=== PATIENT | male | born 1995 | race Caucasian/White ===

== ENCOUNTER 2021-02-14 22:51 | Emergency (ER) | payer OTHER ==
[~2021-02-14] VITALS: Ht 182.9 cm; Wt 104.3 kg
[2021-02-14] MEDS ORDERED: TOPROL XL25 MG PO (23:00)
[2021-02-14 23:25] LABS: ABSOLUTE BASOPHILS 0.1 thou/uL (0.0-0.2); ABSOLUTE LYMPHOCYTES 3.5 thou/uL (0.8-5.3); ABSOLUTE MONOCYTES 1.1 thou/uL (0.0-1.2); ABSOLUTE NEUTROPHILS 11.2 thou/uL (1.6-8.1); BASOPHILS 0.5 %; EOSINOPHILS 0.1 %; HEMATOCRIT 53.1 % (42.0-52.0); HEMOGLOBIN 17.9 gm/dL (14.0-18.0); LYMPHOCYTES 21.8 %; MCH 31.4 pg (26.0-34.0); MCHC 33.7 g/dL (28.0-37.0); MCV 93.1 fL (80.0-100.0); MONOCYTES 6.8 %; NUCLEATED RBCS 0 /100WBC; PLATELET COUNT* 384 thou/uL (150-400); POLYS 70.8 %; RDW-CV 14.3 % (10.5-14.5); WBC 15.8 thou/uL (4.0-11.0)
[2021-02-14 23:49] LABS: ANION GAP 19 mmol/L (7-16); BUN 12 mg/dL (7-18); CALCIUM 8.7 mg/dL (8.5-10.1); CHLORIDE 97 mmol/L (98-107); CO2 22 mmol/L (21-32); CREATININE 1.2 mg/dL (0.6-1.3); GLUCOSE 87 mg/dL (70-99); POTASSIUM 3.6 mmol/L (3.5-5.1); SODIUM 138 mmol/L (136-145)
[2021-02-15] LABS: ALBUMIN 4.6 g/dL (3.4-5.0); ALKALINE PHOSPHATASE 80 U/L (46-116); LIPASE 62 U/L (73-393); NT-PRO BRAIN NAT PEPTIDE < 5 pg/mL (<300); SGOT 26 U/L (15-37); SGPT 38 U/L (30-65); TOTAL BILIRUBIN 0.4 mg/dL (<0.1-1.0); TOTAL PROTEIN 8.6 g/dL (6.4-8.2)
[2021-02-15 00:37] LABS: APTT 28.2 Seconds (25.0-31.3); INR 1.1; PROTIME 11.4 Seconds (9.20-11.50)
[2021-02-15] MEDS ORDERED: ZOFRAN ODT4 MG PO (05:55)
--- NOTE | 2021-02-15 09:57 | EKG ---
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
== END 2021-02-15 00:25 | disposition left against medical advice (07) ==
LOC: M.ERS 22:51
PROVIDERS: Personal Emergency Response Attendant
DX: F10.129 Alcohol abuse with intoxication, unspecified (principal); Y90.9 Presence of alcohol in blood, level not specified; R07.89 Other chest pain; I10 Essential (primary) hypertension; Z79.899 Other long term (current) drug therapy

== ENCOUNTER 2021-02-15 00:46 | Emergency (ER) | payer OTHER ==
[~2021-02-15] VITALS: Ht 182.9 cm; Wt 99.8 kg
[~2021-02-15 00:46] MED LIST: TOPROL XL25 MG PO
[2021-02-15 04:01] LABS: URINE BILIRUBIN NEGATIVE (Negative); URINE BLOOD 1+ (Negative); URINE CLARITY CLEAR; URINE COLOR YELLOW; URINE GLUCOSE-RANDOM NEGATIVE (Negative); URINE KETONES 2+ (Negative); URINE LEUKOCYTES-REFLEX NEGATIVE (Negative); URINE NITRITE-REFLEX NEGATIVE (Negative); URINE PROTEIN 3+ (Negative); URINE SPECIFIC GRAVITY >= 1.030 (1.005-1.030); URINE UROBILINOGEN 0.2 E.U./dl (0.2-1.0)
[2021-02-15 04:09] LABS: AMP/METHAMP Negative (Negative); BARBITURATES Negative (Negative); BENZODIAZEPINES Negative (Negative); COCAINE Negative (Negative); METHADONE Negative (Negative); OPIATES Negative (Negative); PCP Negative (Negative); THC POSITIVE (Negative)
[2021-02-15 04:19] LABS: CRYSTALS None Seen /LPF (None Seen); FINE GRANULAR CASTS 0-3 Few /LPF (None Seen); HYALINE CASTS 0-3 Few /LPF (None Seen); MUCUS 4-6 Moderate strn/LPF (None Seen); SQUAMOUS 0-3 Few /LPF (0-3); URINE RBC 3-10 Few /HPF (0-2); URINE WBC-REFLEX 0-5 Rare /HPF (0-5)
[2021-02-15] MEDS ORDERED: ZOFRAN ODT4 MG PO (05:55)
[2021-02-15 07:02] VITALS: BP 134/88
--- NOTE | 2021-02-15 09:59 | EKG ---
[place] [address] ELECTROCARDIOGRAM REPORT Name: ALFONSO ATKINSON Room: 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1995 Requested By: Sofia Zuluaga Order Number: [id number] MD: David White Measurements Intervals [place] Rate: 112 P: 44 [place]: 160 QRS: 48 QRSD: 118 T: 17 QT: 355 QTc: 485 Interpretive Statements Sinus tachycardia Probable left atrial enlargement Incomplete right bundle branch block Baseline wander in lead(s) V2 Compared to ECG 02/14/2021 23:00:34 no change Electronically Signed On 02-15-2021 9:59:11 CDT by David White [email or web address] <ELECTRONICALLY SIGNED> By: David White MD, FAC 02/15/21 0959 2 2 David White MD, [facility] /EPI
== END 2021-02-15 07:02 | disposition home or self-care (01) ==
LOC: M.ERS 00:46
PROVIDERS: Personal Emergency Response Attendant
DX: F10.129 Alcohol abuse with intoxication, unspecified (principal); R11.2 Nausea with vomiting, unspecified; I10 Essential (primary) hypertension; Y90.9 Presence of alcohol in blood, level not specified; Z79.899 Other long term (current) drug therapy

== ENCOUNTER 2021-02-22 13:04 | Inpatient (IN) | payer OTHER ==
[~2021-02-22] VITALS: Ht 182.9 cm; Wt 98.0 kg
[~2021-02-22 13:04] MED LIST changes: +ZOFRAN ODT4 MG PO
[2021-02-22 13:09] VITALS: BP 156/88
[2021-02-22 13:37] LABS: ABSOLUTE BASOPHILS 0.1 thou/uL (0.0-0.2); ABSOLUTE EOSINOPHILS 0.1 thou/uL (0.0-0.7); ABSOLUTE LYMPHOCYTES 1.9 thou/uL (0.8-5.3); ABSOLUTE MONOCYTES 0.9 thou/uL (0.0-1.2); ABSOLUTE NEUTROPHILS 5.4 thou/uL (1.6-8.1); BASOPHILS 0.8 %; EOSINOPHILS 0.8 %; HEMATOCRIT 52.4 % (42.0-52.0); HEMOGLOBIN 18.2 gm/dL (14.0-18.0); LYMPHOCYTES 22.7 %; MCH 31.9 pg (26.0-34.0); MCHC 34.7 g/dL (28.0-37.0); MCV 91.8 fL (80.0-100.0); MONOCYTES 10.5 %; MPV 8.8 fl. (7.2-11.1); NUCLEATED RBCS 0 /100WBC; PLATELET COUNT* 245 thou/uL (150-400); POLYS 65.2 %; RDW-CV 14.1 % (10.5-14.5); WBC 8.3 thou/uL (4.0-11.0)
[2021-02-22 13:44] LABS: CALCIUM 8.9 mg/dL (8.5-10.1); CREATININE 0.8 mg/dL (0.6-1.3); POTASSIUM 3.8 mmol/L (3.5-5.1)
[2021-02-22 13:48] LABS: ALBUMIN 4.2 g/dL (3.4-5.0); TOTAL BILIRUBIN 0.5 mg/dL (<0.1-1.0); TOTAL PROTEIN 9.1 g/dL (6.4-8.2)
[2021-02-22 13:59] LABS: URINE BILIRUBIN NEGATIVE (Negative); URINE BLOOD TRACE (Negative); URINE CLARITY CLEAR; URINE COLOR YELLOW; URINE GLUCOSE-RANDOM 1+ (Negative); URINE KETONES TRACE (Negative); URINE LEUKOCYTES-REFLEX NEGATIVE (Negative); URINE NITRITE-REFLEX NEGATIVE (Negative); URINE PROTEIN 2+ (Negative); URINE SPECIFIC GRAVITY 1.015 (1.005-1.030); URINE UROBILINOGEN 0.2 E.U./dl (0.2-1.0)
[2021-02-22 14:08] LABS: BACTERIA-REFLEX 1-9 Few /HPF (None Seen); CASTS None Seen /LPF (None Seen); CRYSTALS None Seen /LPF (None Seen); MUCUS 4-6 Moderate strn/LPF (None Seen); SQUAMOUS 4-10 Moderate /LPF (0-3); URINE RBC 0-2 Rare /HPF (0-2); URINE WBC-REFLEX 0-5 Rare /HPF (0-5)
[2021-02-22 16:10] LABS: CALCIUM 9.1 mg/dL (8.5-10.1); MAGNESIUM 2.3 mg/dL (1.8-2.4); PHOSPHORUS* 3.3 mg/dL (2.5-4.9); PROTIME 10.6 Seconds (9.20-11.50)
[2021-02-22 16:47] LABS: AMP/METHAMP Negative (Negative); BARBITURATES Negative (Negative); BENZODIAZEPINES Negative (Negative); COCAINE Negative (Negative); METHADONE Negative (Negative); OPIATES Negative (Negative); PCP Negative (Negative); THC POSITIVE (Negative)
[2021-02-22 19:44] VITALS: BP 130/81
[2021-02-22 19:45] VITALS: BP 136/92
[2021-02-22 22:25] VITALS: BP 151/71
[2021-02-23 00:27] VITALS: BP 137/65
[2021-02-23 04:00] VITALS: BP 143/100
[2021-02-23 05:15] VITALS: BP 129/94
[2021-02-23 08:00] VITALS: BP 160/113
[2021-02-23 10:44] LABS: ABSOLUTE EOSINOPHILS 0.2 thou/uL (0.0-0.7); ABSOLUTE LYMPHOCYTES 1.4 thou/uL (0.8-5.3); ABSOLUTE MONOCYTES 0.8 thou/uL (0.0-1.2); ABSOLUTE NEUTROPHILS 4.1 thou/uL (1.6-8.1); BASOPHILS 0.7 %; EOSINOPHILS 3.3 %; HEMATOCRIT 44.5 % (42.0-52.0); LYMPHOCYTES 21.2 %; MCH 31.2 pg (26.0-34.0); MCHC 33.6 g/dL (28.0-37.0); MCV 92.7 fL (80.0-100.0); MONOCYTES 11.8 %; MPV 8.5 fl. (7.2-11.1); NUCLEATED RBCS 0 /100WBC; RDW-CV 13.7 % (10.5-14.5); WBC 6.5 thou/uL (4.0-11.0)
[2021-02-23 10:46] LABS: PLATELET COUNT* 163 thou/uL (150-400)
[2021-02-23] MEDS ORDERED: PROTONIX40 M4 PO (11:56)
[2021-02-23] MEDS ORDERED: FOLIC ACID1 MG PO (11:57)
[2021-02-23] MEDS ORDERED: VITAMIN B-1100 M2 PO (11:57)
[2021-02-23 12:00] VITALS: BP 129/91
== END 2021-02-23 17:31 | disposition left against medical advice (07) | DRG 377 ==
LOC: M.ERS 13:04 → M.TBA-ER 14:09 → M.2W 19:24
PROVIDERS: Family Medicine; ADMIT Internal Medicine; ATTEND Internal Medicine
DX: K92.2 Gastrointestinal hemorrhage, unspecified (principal); G92.9 Unspecified toxic encephalopathy; F10.129 Alcohol abuse with intoxication, unspecified; Z20.822 Contact with and (suspected) exposure to COVID-19

== ENCOUNTER 2021-04-01 10:55 | Inpatient (IN) | payer OTHER ==
[~2021-04-01] VITALS: Ht 182.9 cm; Wt 108.9 kg
[~2021-04-01 10:55] MED LIST changes: +FOLIC ACID1 MG PO; +PROTONIX40 M4 PO; +VITAMIN B-1100 M2 PO
[2021-04-01 11:04] VITALS: BP 187/125
[2021-04-01 11:18] LABS: ABSOLUTE LYMPHOCYTES 2.9 thou/uL (0.8-5.3); HEMOGLOBIN 17.6 gm/dL (14.0-18.0); NUCLEATED RBCS 0 /100WBC
[2021-04-01 11:20] LABS: ABSOLUTE BASOPHILS 0.1 thou/uL (0.0-0.2); ABSOLUTE MONOCYTES 0.7 thou/uL (0.0-1.2); BASOPHILS 1.1 %; EOSINOPHILS 0.2 %; HEMATOCRIT 51.1 % (42.0-52.0); LYMPHOCYTES 37.8 %; MCH 31.6 pg (26.0-34.0); MCHC 34.4 g/dL (28.0-37.0); MCV 91.7 fL (80.0-100.0); MONOCYTES 8.6 %; MPV 7.1 fl. (7.2-11.1); PLATELET COUNT* 365 thou/uL (150-400); POLYS 52.3 %; RBC 5.58 mil/uL (4.50-6.00); RDW-CV 14.9 % (10.5-14.5); WBC 7.7 thou/uL (4.0-11.0)
[2021-04-01 11:30] LABS: CALCIUM 8.6 mg/dL (8.5-10.1); CREATININE 0.8 mg/dL (0.6-1.3); POTASSIUM 3.7 mmol/L (3.5-5.1)
[2021-04-01 11:35] LABS: ALBUMIN 4.2 g/dL (3.4-5.0); TOTAL BILIRUBIN 0.2 mg/dL (<0.1-1.0); TOTAL PROTEIN 8.6 g/dL (6.4-8.2)
[2021-04-01 11:45] LABS: SALICYLATE < 2.8 mg/dL (2.8-20.0)
[2021-04-01 11:46] LABS: ACETAMINOPHEN < 2 ug/mL (10-30)
[2021-04-01 11:48] LABS: ALCOHOL 409 mg/dL (<10)
[2021-04-01 11:58] LABS: AMP/METHAMP Negative (Negative); BARBITURATES Negative (Negative); BENZODIAZEPINES Negative (Negative); COCAINE Negative (Negative); METHADONE Negative (Negative); OPIATES Negative (Negative); PCP Negative (Negative); THC Negative (Negative)
[2021-04-01 12:00] LABS: URINE BILIRUBIN NEGATIVE (Negative); URINE BLOOD NEGATIVE (Negative); URINE CLARITY CLEAR; URINE COLOR YELLOW; URINE GLUCOSE-RANDOM NEGATIVE (Negative); URINE KETONES NEGATIVE (Negative); URINE LEUKOCYTES-REFLEX NEGATIVE (Negative); URINE NITRITE-REFLEX NEGATIVE (Negative); URINE PROTEIN NEGATIVE (Negative); URINE UROBILINOGEN 0.2 E.U./dl (0.2-1.0)
[2021-04-01 16:09] VITALS: BP 132/89
[2021-04-01 21:44] VITALS: BP 182/120
[2021-04-01 22:16] VITALS: BP 165/102
== END 2021-04-01 22:27 | disposition left against medical advice (07) | DRG 894 ==
LOC: M.ERS 10:55 → M.TBA-ER 12:06
PROVIDERS: Emergency Medicine; ADMIT Internal Medicine; ATTEND Internal Medicine
DX: F10.239 Alcohol dependence with withdrawal, unspecified (principal); Z20.822 Contact with and (suspected) exposure to COVID-19; I25.2 Old myocardial infarction